=== PATIENT | male | born 1990 | race Two or more races ===

== ENCOUNTER 2017-02-10 17:34 | Observation (INO) | payer OTHER ==
--- NOTE | ~2017-02-10 | HP ---
Unit #: [id number] #: [id number] Patient: TIGRE PAK [id number] [address] [place], [place] [address] [id number] MR#: [id number] NAME: TIGRE PAK ROOM: 558 Age: 26 Sex: M Admission Date: 02/10/2017 : 1990 Attending Physician: Ras Angel M.D. Primary Care Physician: No Primary Care Physician HISTORY AND PHYSICAL CHIEF COMPLAINT Nausea, vomiting, unable to keep anything down. DISCUSSION This is a 26-year-old gentleman who has a past medical history significant for history of insulin dependent type 1 diabetes since age 15 and history of alcohol abuse. He presented to the emergency room with a chief complaint of nausea, vomiting since last time many times. He says he drinks. He was at a friend's birthday democr[employer] and he drank alcohol a lot yesterday. Since then, he has been drinking. He said he had alcohol poisoning since he has been having nausea and vomiting. He came to ER, was given Zofran, Protonix, Phenergan, Pepcid with no improvement and eventually has been admitted for recurrent intractable nausea and vomiting though he was found to have white count of 18,000, glucose 344, BUN 27, creatinine 0.9, potassium 3.9. Alcohol level dose less than 5. Urine positive for ketones. He denied chest pain. He had some epigastric discomfort. No diffuse abdominal pain or blood in the stool, chest pain, diaphoresis, cough, fever or any other complaint. PAST MEDICAL HISTORY History of insulin dependent type 1 diabetes since age 15. PAST SURGICAL HISTORY 1. History of appendectomy. 2. Circumcision. HOME MEDICATION He takes: 1. Lisinopril 2.5 mg daily. 2. Lantus 23 units subcu at bedtime. 3. Humalog per sliding scale. SOCIAL HISTORY The patient lives with his family. He is originally from [place]. He said he drinks alcohol, 10 to 20 drinks on weekends. Denies daily drinking. Denies other illicit drug use. FAMILY HISTORY Positive for diabetes. REVIEW OF SYSTEMS All review of systems negative except for History of Present Illness. PHYSICAL EXAMINATION Unit #: [id number] #: [id number] Patient: TIGRE PAK GENERAL: 26-year-old young man lying in the bed comfortably, currently not in any distress. He is alert, awake, oriented x3. CURRENT VITAL SIGNS: Temperature 97.7, heart rate 100, respiratory rate 18, blood pressure 135/80. Oxygen is 100% on room air. HEENT: Pupils equal, reactive to light and accommodation. Head is normocephalic, atraumatic. Extraocular muscles intact. NECK: Supple. No JVD, no thyromegaly. LUNGS: Clear to auscultation bilaterally. No rhonchi, no wheezing. HEART: S1, S2. Regular rate and rhythm. ABDOMEN: Soft, nontender, nondistended. Bowel sounds positive. EXTREMITIES: Inspection normal. No cyanosis, no clubbing, no edema. NEURO: No focal neurologic deficit. SKIN: Dry, warm. DIAGNOSTIC STUDIES LABORATORY: Urine toxicology is negative. UA shows glucose more than 1000, 2+ ketones, white count is 18, hemoglobin 14, hematocrit 42, platelets 253. Chemistry - sodium 137, potassium 3.9, chloride 96, CO2 26, glucose 344, BUN 27, platelets 0.9. LFT - total bilirubin 1.0, total protein 8.4, amylase 14, lipase 40. Alcohol level less than 5. ASSESSMENT AND PLAN 1. Nausea, vomiting, most likely secondary to alcoholic gastritis: Will keep the patient on full liquid diet, IV Protonix, IV Zofran. 2. History of insulin dependent diabetes with early diabetic ketoacidosis: Will (1) Lantus, place on sliding scale. 3. Alcohol abuse. 4. Leukocytosis: No sign of sepsis. Repeat CBC in the morning. 5. DVT prophylaxis: Will place the patient on Lovenox. Dictated by Mira Zhang TD: 02/11/2017 06:50 JOB #: [id number] HISTORY AND PHYSICAL Page 1 of 1 X X HISTORY AND PHYSICAL
--- NOTE | ~2017-02-10 | DS ---
Unit #: [id number] #: [id number] Patient: TIGRE FUENTES [id number] [address] [place], [place] [address] [id number] MR#: [id number] NAME: TIGRE FUENTES ROOM: 558 Age: 26 Sex: M Admission Date: 02/10/2017 : 1990 Discharge Date: 02/11/2017 Attending Physician: Lore Hannah M.D. Primary Care Physician: No Primary Care Physician DISCHARGE SUMMARY PRINCIPAL DIAGNOSES 1. SIRS secondary to nausea and vomiting, likely multifactorial. 2. Gastritis. 3. Questionable viral gastroenteritis. 4. Acute kidney injury, prerenal. 5. Diabetes mellitus type 1, uncontrolled, with pending hemoglobin A1c. 6. Reactive leukocytosis. 7. Alcohol misuse. CONSULTANTS None. PROCEDURES None. CLINICAL HISTORY/HOSPITAL COURSE Mr. Fuentes is a 26-year-old male who presents to the emergency department with complaints of nausea and vomiting. Please refer to history and physical for further details. Lab work in the emergency department was unremarkable with the exception of some hyperglycemia. The patient's nausea and vomiting is intractable and, thus, he was placed in observation for evaluation. The patient has been able to tolerate liquids all night. I will note his sugars have increased significantly and are now greater than 400, likely due to the Gatorade he was drinking. We are going to increase his sliding scale insulin and advance his diet today. Assuming we can get his sugars more down into the 200 range and he is able to tolerate a diet, I think he can go home later today. I will note the patient did have some leukocytosis, rather significant at 20,000, and was primarily neutrophils. However, his nausea and vomiting have resolved and he has had no evidence of fever. He has not had any diarrhea. I cannot find any other infectious etiology. I think this can be followed up as an outpatient. The patient states he has enough insulin at home and I will allow him to follow up with his primary provider regarding his sugars. The patient will, again, be discharged home later today if able to tolerate a diet. DISCHARGE CONDITION Stable. Unit #: [id number] #: [id number] Patient: TIGRE FUENTES DISCHARGE DISPOSITION Discharge to home. DISCHARGE MEDICATIONS 1. Zofran 4 mg p.o. q.6 h. p.r.n. nausea/vomiting, number given 10. 2. Lisinopril 2.5 mg daily. 3. Humalog t.i.d. sliding scale. 4. Lantus 23 units at bedtime. 5. Protonix 40 mg p.o. daily with 1 refill. DIET The patient is instructed to follow a CCD diet. He should continue Accu-Cheks morning and evening at home. ACTIVITY He can increase his activity as tolerated. He is to refrain from any further alcohol use. FOLLOWUP The patient will follow up with his primary care provider, [facility] in [place], in one week. He needs a repeat CBC at that time. Dictated by... Lore Hannah M.D. CHERRY/eusebio TD: 02/12/2017 09:00 JOB #: [id number] CC: [facility] DISCHARGE SUMMARY Page 1 of 1 X Lore Hannah MD X DISCHARGE SUMMARY
[~2017-02-10 17:34] MED LIST: ADVIL200 M2 PO; BACTROBAN22 GM TP; FLAGYL PO; HUMALOG100 U/ML; HUMALOG100 U/ML SUBQ; HYDROCODONE-A1 UDTA3 PO; LANTUS100 UNITS/ SUBQ; LISINOPRIL5 MG PO; NAPROSYN500 MG PO; NYSTATIN-TRIAMC15 G1 TP; TYLOX1 CAP 5/50 PO
[2017-02-10 19:02] LABS: BASOPHIL% 0.1 % (0-2.5); DIFF IND YES; HEMATOCRIT 42.9 % (38.0-50.0); HEMOGLOBIN 14.6 gm/dL (13.0-16.0); LYMPHOCYTE# 1.2 X10e3 (1.0-3.5); LYMPHOCYTE% 6.6 % (17.0-45.0); MEAN CELL VOLUME 87.2 FL (83-96); MEAN CORPUSCULAR HEMOGLOBIN 29.6 PG (28-34); MEAN PLATELET VOLUME 9.4 FL (6.5-11.5); MONOCYTE# 0.3 X10e3 (0-1.0); MONOCYTE% 1.6 % (3.0-12.0); NEUTROPHIL% 91.7 % (40-75); PLATELET COUNT 253 X10e3 (140-420); RED BLOOD COUNT 4.92 X10e (3.90-5.60); RED CELL DISTRIBUTION WIDTH 12.6 % (11.0-15.5); WHITE BLOOD COUNT 18.5 X10e3 (4.0-10.5)
[2017-02-10 19:22] LABS: ALBUMIN SERUM 4.8 g/dL (3.5-5.0); ALKALINE PHOSPHATASE 80 U/L (32-92); ALT (SGPT) 30 U/L (10-40); AMYLASE 14 U/L (0-46); AST (SGOT) 26 U/L (10-42); BILIRUBIN, DIRECT 0.1 mg/dL (0.0-0.2); BILIRUBIN,INDIRECT 1.3 mg/dL (0.0-0.9); BILIRUBIN,TOTAL 1.4 mg/dL (0.2-2.0); BLOOD UREA NITROGEN 27 mg/dL (9-23); CALCIUM SERUM 9.5 mg/dL (8.4-10.2); CARBON DIOXIDE 26 mmol/L (22-31); CHLORIDE 96 mmol/L (100-111); CREATININE SERUM 0.9 mg/dL (0.6-1.4); GLOM FILT RATE Estimated 119.1 mL/min (>60); GLUCOSE FASTING 344 mg/dL (70-110); LIPASE 14 U/L (22-51); POTASSIUM 3.9 mmol/L (3.5-5.1); PROTEIN TOTAL SERUM 8.5 g/dL (6.0-8.3); SODIUM 137 mmol/L (135-145)
[2017-02-10 19:24] LABS: ALCOHOL BLOOD <5 mg/dL (0)
[2017-02-10 19:25] LABS: PLATELET ESTIMATE NORMAL (NORMAL); RBC NORMAL YES
[2017-02-10 19:35] LABS: URINE SOURCE CLEAN CATCH
[2017-02-10 19:43] LABS: URINE APPEARANCE CLEAR; URINE BILIRUBIN NEG (NEG); URINE BLOOD 2+ (NEG); URINE COLOR YELLOW; URINE GLUCOSE >1000 MG/DL (NEG); URINE KETONE 2+ (NEG); URINE LEUKOCYTE ESTERASE NEG (NEG); URINE NITRATE NEG (NEG); URINE PH 5.5 (5-8); URINE PROTEIN 2+ (NEG); URINE SPECIFIC GRAVITY 1.035 (1.003-1.035); URINE UROBILINOGEN 0.2 MG/DL (NEG)
[2017-02-10 19:46] LABS: URINE BACTERIA AUWI NEG (NEGATIVE); URINE SQUAMOUS EPITHELIAL CELL NONE SEEN /[HPF]; UWBCS1 AUWI 0-2 (0-5)
[2017-02-10 19:51] LABS: CULTURE INDICATED? NO
[2017-02-10 19:52] LABS: AMPHETAMINE NEG (NEG); BARBITURATES NEG (NEG); BENZODIAZEPINES NEG (NEG); COCAINE NEG (NEG); MARIJUANA NEG (NEG); OPIATES NEG (NEG); TRICYCLIC ANTIDEPRESSANTS NEG (NEG); U METHADONE NEG (NEG)
[2017-02-10] MEDS ORDERED: LISINOPRIL2.5 MG PO (20:58)
[2017-02-10] MEDS ORDERED: LANTUS100 U/ML SUBQ (21:02)
[2017-02-10] MEDS ORDERED: HUMALOG100 UNIT/1 SUBQ (21:03)
[2017-02-11 06:46] LABS: BASOPHIL% 0.1 % (0-2.5); HEMOGLOBIN 13.5 gm/dL (13.0-16.0); LYMPHOCYTE# 1.7 X10e3 (1.0-3.5); LYMPHOCYTE% 8.1 % (17.0-45.0); MEAN CELL VOLUME 89.5 FL (83-96); MEAN CORPUSCULAR HEMOGLOBIN 29.5 PG (28-34); MEAN CORPUSCULAR HGB CONC 32.9 g/dL (30-36); MEAN PLATELET VOLUME 9.9 FL (6.5-11.5); MONOCYTE# 0.6 X10e3 (0-1.0); MONOCYTE% 2.9 % (3.0-12.0); NEUTROPHIL# 18.4 X10e3 (1.5-7.1); NEUTROPHIL% 88.9 % (40-75); PLATELET COUNT 227 X10e3 (140-420); RED BLOOD COUNT 4.58 X10e (3.90-5.60); RED CELL DISTRIBUTION WIDTH 12.6 % (11.0-15.5); WHITE BLOOD COUNT 20.7 X10e3 (4.0-10.5)
[2017-02-11 06:52] LABS: DIFF IND NO
[2017-02-11 06:59] LABS: BUN/CREATININE RATIO 28.33; CALCIUM SERUM 8.9 mg/dL (8.4-10.2); CREATININE SERUM 1.2 mg/dL (0.6-1.4); GLOM FILT RATE Estimated 84.2 mL/min (>60)
[2017-02-11] MEDS ORDERED: ZOFRAN PO (14:33)
[2017-02-11] MEDS ORDERED: PROTONIX PO (14:34)
== END 2017-02-11 14:58 | disposition home or self-care (01) | DRG 392 ==
LOC: CED 17:34 → EDBD 17:34 → CED 18:55 → CEDOF 21:20 → CED 21:22 → CEDOF 21:22 → C5B 23:52
PROVIDERS: Internal Medicine; Student in an Organized Health Care Education/Training Program
DX: R11.2 Nausea with vomiting, unspecified (principal); R65.10 Systemic inflammatory response syndrome (SIRS) of non-infectious origin without acute organ dysfunction; K29.70 Gastritis, unspecified, without bleeding; N17.9 Acute kidney failure, unspecified; E10.65 Type 1 diabetes mellitus with hyperglycemia; Z79.4 Long term (current) use of insulin; D72.829 Elevated white blood cell count, unspecified; F10.10 Alcohol abuse, uncomplicated; Z83.3 Family history of diabetes mellitus
CPT/HCPCS: 36415; 80048; 80076; 80307; 81003; 82150; 82947; 83036; 83690; 85025; 96361; 96372; 96374; 96375; 96376; 99285; C9113; G0378; G0480; J1650; J1815; J2405; J2550